=== PATIENT | female | born 1960 | race Caucasian/White ===

== ENCOUNTER → 2024-03-12 08:32 | Outpatient (REF) | payer OTHER, SELFPAY | LOC: WDC 08:32 | PROVIDERS: ATTENDING PHYSICIAN Family Medicine | DX: R92.8 Other abnormal and inconclusive findings on diagnostic imaging of breast (principal) | CPT/HCPCS: 77061; 77065 ==

== ENCOUNTER 2024-09-09 16:02 | Emergency (ER) | payer OTHER, SELFPAY ==
[2024-09-09 16:16] VITALS: BP 175/94
--- NOTE | 2024-09-09 18:32 | ED.GENMED ---
History of Present Illness
General
Chief Complaint: Eye Problems
Time Seen by Provider: 09/09/24 17:54
History of Present Illness
History of Present Illness:
63-year-old female presents due to left eye discomfort and redness. Notes that she was rubbing her eye frequently while crying at a last night. She was wearing contacts at that time. Reports mild blurry vision, excessive tearing but no
purulent discharge.
Past History
Past History
ED Past Medical History: HTN and Hypothyroidism
ED Past Surgical History: Cholecystectomy
Social History
Tobacco: Non-smoker
Alcohol: Occasional
Drug: None
Personal:
Living: with family
Review of Systems
Review of Systems
Allergies reviewed?: Yes
All Other Systems: ROS reviewed and negative except as documented in HPI and ROS
Phy Exam
Physical Exam
Physical Exam:
GEN: Well appearing, NAD, WDWN
HEENT: Oral mucosa moist, no scleral icterus. Abrasion covering the entire central aspect of the cornea, negative Ayanna sign
Cardiac: Regular rate
Lung: No respiratory distress, no tachypnea
MSK: No gross deformity or injuries
Skin: Good color, no pallor or jaundice, no rashes
Neuro: AO x3, moves all extremities freely
Psych: Calm, cooperative
Course
Vital Signs
Initial and Last Documented VS:
Initial Vital Signs
Temp Pulse Resp BP Pulse Ox
98.8 F 78 17 175/94 99
09/09/24 16:16 09/09/24 16:16 09/09/24 16:16 09/09/24 16:16 09/09/24 16:16
Last Documented Vital Signs
Temp Pulse Resp BP Pulse Ox
98.8 F 78 17 175/94 99
09/09/24 16:16 09/09/24 16:16 09/09/24 16:16 09/09/24 16:16 09/09/24 16:16
MDM/Problems Addressed
MDM/Problems Addressed:
Large corneal abrasion noted on fluorescein exam will start on topical antibiotics directed close ophthalmology/optometry follow-up
*Critical Care Note
Total Time (30-74mins, 75-104mins- exclusive of procedures): Not Applicable
ED Attending Note
-
Portions of this chart may have been created with voice recognition software.� Occasional wrong word or��sound alike� substitutions may have occurred due to the inherent limitations of voice recognition software.
Discharge Plan
Departure
Patient Disposition: Home (Routine Discharge)
Date of Disposition: 09/09/24
Time of Disposition: 18:33
Patient with high blood pressure during this ER visit?: No
Discharge Problem:
Abrasion, corneal
Instructions: Corneal Abrasion (DC)
Prescriptions:
New
ofloxacin 0.3 % drops
2 drp ophthalmic (eye) QID 5 Days Qty: 5 0RF
Referrals:
Christie Chin, [Family Provider] -
Interventions
Interventions:
*Risk Screen - Suicide Last Done: 09/09/24 16:18
*General Assessment Last Done: 09/09/24 16:18
*Neglect/Abuse Screening Last Done: 09/09/24 16:18
*ED COVID-19 Vaccine History Last Done: 09/09/24 16:18
Discharge Date and Time
Print Language: SPANISH
== END 2024-09-09 18:44 | disposition home or self-care (01) ==
LOC: EMR 16:02
PROVIDERS: EMERGENCY PHYSICIAN Emergency Medicine; FAMILY PHYSICIAN Family Medicine
DX: S05.02XA Injury of conjunctiva and corneal abrasion without foreign body, left eye, initial encounter (principal); X58.XXXA Exposure to other specified factors, initial encounter; I10 Essential (primary) hypertension; E03.9 Hypothyroidism, unspecified; Z90.49 Acquired absence of other specified parts of digestive tract
CPT/HCPCS: 99283